=== PATIENT | male | born 1960 | race Asian ===

== ENCOUNTER 2017-12-07 18:05 | Inpatient (IN) | payer BC ==
[~2017-12-07] VITALS: Ht 165.1 cm; Wt 73.9 kg
[~2017-12-07 18:05] MED LIST: ASPI81 PO; BENA20TA3 PO; CITA20TA9 PO; DISU250 PO; FISH1CAP27 PO; GLIP10TA9 PO; INSLAN SQ; OMEP20 PO; SIMV-260 PO; VITAD1000 PO
[2017-12-07] MEDS ORDERED: LORazepam 2 MG TABLET PO ONE (21:45)
[2017-12-07 22:00] LABS: ANION GAP 8 mmol/L (8-16); CALCIUM, TOTAL 8.1 mg/dL (8.8-10.5); CARBON DIOXIDE 30 mmol/L (22-29); CHLORIDE 100 mmol/L (98-107); CREATININE 1.03 mg/dL (0.60-1.30); GLOMERULAR FILTR. RATE CALC > 60 mL/min (>60); GLUCOSE,RANDOM 327 mg/dL (70-110); POTASSIUM 3.9 mmol/L (3.5-5.1); SODIUM SERUM 138 mmol/L (136-145); UREA NITROGEN, BLOOD 13 mg/dL (7-18)
[2017-12-07] MEDS ORDERED: MAG HYDROX/AL HYDROX/SIMETH ES 30 ML SUSPENSION UDCUP PO PRN (22:00)
[2017-12-07] MEDS ORDERED: GuaiFENesin/D-METHORPHAN [SUGAR-FREE] 200-20MG/10 ML SYRUP UDCUP PO PRN (22:00)
[2017-12-07] MEDS ORDERED: MAGNESIUM HYDROXIDE SUSPENSION 30 ML UDCUP PO PRN (22:00)
[2017-12-07] MEDS ORDERED: LORazepam 2 MG TABLET PO PRN ×2 (22:00)
[2017-12-07] MEDS ORDERED: CYANOCOBALAMIN 1,000 MCG/ML VIAL IM ONE (22:00)
[2017-12-07] MEDS ORDERED: HydrOXYzine PAMOATE 50 MG CAPSULE PO PRN (22:00)
[2017-12-07] MEDS ORDERED: LOPERAMIDE HCL 2 MG CAPSULE PO PRN ×2 (22:00)
[2017-12-07] MEDS ORDERED: HALOPERIDOL 5 MG TABLET PO PRN (22:00)
[2017-12-07] MEDS ORDERED: PROMETHAZINE HCL 25 MG TABLET PO PRN (22:00)
[2017-12-07] MEDS ORDERED: ZOLPIDEM TARTRATE 10 MG TABLET PO PRN (22:00)
[2017-12-07 22:03] LABS: BASOPHILS % (AUTO) 0.5 % (0.0-2.0); EOSINOPHILS % (AUTO) 1.8 % (1.0-6.0); HEMATOCRIT 46.9 % (41-53); HEMOGLOBIN 16.4 g/dL (13.5-17.5); LYMPHOCYTES # (AUTO) 1.7 K/uL (1.0-4.8); LYMPHOCYTES % (AUTO) 30.1 % (22.0-44.0); MEAN CORPUSCULAR HEMOGLOBIN 31.6 pg (26.0-34.0); MEAN CORPUSCULAR HGB CONC 34.9 G/dL (31.0-37.0); MEAN CORPUSCULAR VOLUME 90 fL (80-100); MONOCYTES # (AUTO) 0.6 K/uL (0.1-1.0); NEUTROPHILS # (AUTO) 3.2 K/uL (1.8-7.7); NEUTROPHILS % (AUTO) 57.6 % (40.0-70.0); PLATELET COUNT (AUTO) 163 K/uL (150-450); RED BLOOD CELL COUNT(AUTO) 5.19 MIL/uL (4.50-5.90); RED CELL DISTRIBUTION WIDTH 13.7 % (11.5-14.5)
[2017-12-07 22:08] LABS: ALANINE AMINOTRANSFERASE 45 U/L (12-78); ALBUMIN 3.5 g/dL (3.4-5.0); ALKALINE PHOSPHATASE 55 U/L (46-116); ASPARTATE AMINOTRANSFERASE 44 U/L (15-37); BILIRUBIN,TOTAL 0.4 mg/dL (0.1-1.0); TOTAL PROTEIN, SERUM 7.1 g/dL (6.4-8.2)
[2017-12-07] MEDS ORDERED: INSULIN REGULAR, HUMAN 100 UNITS/ML SQ ONE (22:30)
[2017-12-07 22:58] LABS: GLUCOSE,POINT OF CARE 248 MG/DL (70-110)
[2017-12-08] VITALS (12 sets, daily range): BP systolic 108–143; BP diastolic 63–87
[2017-12-08 05:58] LABS: GLUCOMETER DEV NAME(LOC) 3EI B; GLUCOSE,POINT OF CARE 117 MG/DL (70-110)
[2017-12-08] MEDS ORDERED: LORazepam 2 MG TABLET PO PRN (07:00)
[2017-12-08 08:08] LABS: CHOL/HDL RATIO 2.7 (4.2-7.3)
[2017-12-08] MEDS: THIAMINE HCL 100 MG TABLET PO SCH ×2 (08:33→16:49)
[2017-12-08] MEDS: FOLIC ACID 1 MG TABLET PO SCH (08:33)
[2017-12-08] MEDS: MULTIVITAMINS WITH MINERALS, THERAPEUTIC TABLET PO SCH (08:33)
[2017-12-08] MEDS: LORazepam 2 MG TABLET PO SCH ×4 (08:39→20:53)
[2017-12-08] MEDS ORDERED: DEXTROSE 50%-WATER 25 GM/50 ML SYRINGE IVP PRN (11:00)
[2017-12-08] MEDS: INSULIN ASPART 100 UNITS/ML SQ PRN ×3 (11:34→21:13)
[2017-12-08] MEDS: SIMVASTATIN 20 MG TABLET PO SCH (20:53)
[2017-12-08] MEDS ORDERED: MIRTAZAPINE 15 MG TABLET PO SCH (21:00)
[2017-12-08] MEDS: INSULIN GLARGINE,HUM.REC.ANLOG 100 UNITS/ML SQ SCH (21:12)
[2017-12-09] VITALS (7 sets, daily range): BP systolic 116–144; BP diastolic 71–76
[2017-12-09 06:19] LABS: GLUCOMETER DEV NAME(LOC) 3EI B; GLUCOSE,POINT OF CARE 118 MG/DL (70-110)
[2017-12-09] MEDS: GlipiZIDE 10 MG TABLET PO SCH (07:08)
[2017-12-09] MEDS: CHOLECALCIFEROL (VIT D3) 1,000 UNITS TABLET PO SCH (09:17)
[2017-12-09] MEDS: THIAMINE HCL 100 MG TABLET PO SCH ×2 (09:17→16:52)
[2017-12-09] MEDS: ASPIRIN 81 MG CHEWABLE TABLET PO SCH (09:17)
[2017-12-09] MEDS: OMEGA-3/DHA/EPA/FISH OIL 1,000 MG CAPSULE PO SCH (09:18)
[2017-12-09] MEDS: BENAZEPRIL HCL 20 MG TABLET PO SCH (09:18)
[2017-12-09] MEDS: FOLIC ACID 1 MG TABLET PO SCH (09:18)
[2017-12-09] MEDS: MULTIVITAMINS WITH MINERALS, THERAPEUTIC TABLET PO SCH (09:19)
[2017-12-09] MEDS: OMEPRAZOLE 20 MG CAPSULE PO SCH (09:20)
[2017-12-09] MEDS: LORazepam 2 MG TABLET PO SCH ×4 (09:20→21:00)
[2017-12-09] MEDS: INSULIN ASPART 100 UNITS/ML SQ PRN ×2 (11:30→20:39)
[2017-12-09] MEDS: MIRTAZAPINE 30 MG TABLET PO SCH (20:29)
[2017-12-09] MEDS: SIMVASTATIN 20 MG TABLET PO SCH (21:00)
[2017-12-09] MEDS: INSULIN GLARGINE,HUM.REC.ANLOG 100 UNITS/ML SQ SCH (22:52)
[2017-12-10 05:33] LABS: GLUCOMETER DEV NAME(LOC) 3EI B; GLUCOSE,POINT OF CARE 139 MG/DL (70-110)
[2017-12-10] MEDS: GlipiZIDE 10 MG TABLET PO SCH (06:48)
[2017-12-10 06:52] VITALS: BP 134/75
[2017-12-10 06:53] VITALS: BP 134/75
[2017-12-10] MEDS ORDERED: LORazepam 1 MG TABLET PO PRN (07:00)
[2017-12-10 08:30] VITALS: BP 134/80
[2017-12-10] MEDS: OMEGA-3/DHA/EPA/FISH OIL 1,000 MG CAPSULE PO SCH (08:43)
[2017-12-10] MEDS: LORazepam 1 MG TABLET PO SCH ×4 (08:43→20:14)
[2017-12-10] MEDS: MULTIVITAMINS WITH MINERALS, THERAPEUTIC TABLET PO SCH (08:44)
[2017-12-10] MEDS: THIAMINE HCL 100 MG TABLET PO SCH ×2 (08:44→16:34)
[2017-12-10] MEDS: OMEPRAZOLE 20 MG CAPSULE PO SCH (08:44)
[2017-12-10] MEDS: ASPIRIN 81 MG CHEWABLE TABLET PO SCH (08:44)
[2017-12-10] MEDS: CHOLECALCIFEROL (VIT D3) 1,000 UNITS TABLET PO SCH (08:44)
[2017-12-10] MEDS: BENAZEPRIL HCL 20 MG TABLET PO SCH (08:45)
[2017-12-10] MEDS: FOLIC ACID 1 MG TABLET PO SCH (08:46)
[2017-12-10 09:38] VITALS: BP 134/80
[2017-12-10] MEDS: INSULIN ASPART 100 UNITS/ML SQ PRN ×2 (11:53→20:27)
[2017-12-10 16:25] VITALS: BP 131/73
[2017-12-10 17:20] VITALS: BP 131/80
[2017-12-10] MEDS: MIRTAZAPINE 30 MG TABLET PO SCH (20:14)
[2017-12-10] MEDS: SIMVASTATIN 20 MG TABLET PO SCH (20:14)
[2017-12-10] MEDS: INSULIN GLARGINE,HUM.REC.ANLOG 100 UNITS/ML SQ SCH (20:24)
[2017-12-11 06:12] VITALS: BP 117/76
[2017-12-11 06:33] LABS: GLUCOMETER DEV NAME(LOC) 3EI B; GLUCOSE,POINT OF CARE 239 MG/DL (70-110)
[2017-12-11] MEDS: GlipiZIDE 10 MG TABLET PO SCH (06:40)
[2017-12-11] MEDS: INSULIN ASPART 100 UNITS/ML SQ PRN ×2 (06:41→11:34)
[2017-12-11] MEDS ORDERED: LORazepam 1 MG TABLET PO PRN (07:00)
[2017-12-11 07:16] LABS: HEMOGLOBIN 15.5 g/dL (13.5-17.5); MEAN CORPUSCULAR HEMOGLOBIN 31.6 pg (26.0-34.0); MEAN CORPUSCULAR HGB CONC 35.2 G/dL (31.0-37.0); MEAN CORPUSCULAR VOLUME 90 fL (80-100); PLATELET COUNT (AUTO) 122 K/uL (150-450); RED CELL DISTRIBUTION WIDTH 13.7 % (11.5-14.5)
[2017-12-11 07:39] LABS: HEMOGLOBIN A1C 9.3 % (4.5-6.2)
[2017-12-11 07:51] LABS: ANION GAP 7 mmol/L (8-16); CALCIUM, TOTAL 9.4 mg/dL (8.8-10.5); CARBON DIOXIDE 29 mmol/L (22-29); CHLORIDE 95 mmol/L (98-107); CHOLESTEROL 168 mg/dL (131-200); CREATININE 0.89 mg/dL (0.60-1.30); GLOMERULAR FILTR. RATE CALC > 60 mL/min (>60); GLUCOSE,RANDOM 208 mg/dL (70-110); HDL CHOLESTEROL 56 mg/dL (40-60); LDL CHOL (CALC.) 60 mg/dL (0-130); PHOSPHORUS 4.5 mg/dL (2.5-4.9); POTASSIUM 4.1 mmol/L (3.5-5.1); SODIUM SERUM 131 mmol/L (136-145); THYROID STIMULATING HORMONE 2.04 uIU/mL (0.36-3.74); TRIGLYCERIDES 258 mg/dL (15-150); UREA NITROGEN, BLOOD 17 mg/dL (7-18)
[2017-12-11 08:15] VITALS: BP 144/79
[2017-12-11] MEDS: CHOLECALCIFEROL (VIT D3) 1,000 UNITS TABLET PO SCH (09:13)
[2017-12-11] MEDS: ASPIRIN 81 MG CHEWABLE TABLET PO SCH (09:13)
[2017-12-11] MEDS: OMEPRAZOLE 20 MG CAPSULE PO SCH (09:13)
[2017-12-11] MEDS: FOLIC ACID 1 MG TABLET PO SCH (09:13)
[2017-12-11] MEDS: OMEGA-3/DHA/EPA/FISH OIL 1,000 MG CAPSULE PO SCH (09:13)
[2017-12-11] MEDS: THIAMINE HCL 100 MG TABLET PO SCH (09:13)
[2017-12-11] MEDS: MULTIVITAMINS WITH MINERALS, THERAPEUTIC TABLET PO SCH (09:13)
[2017-12-11] MEDS: BENAZEPRIL HCL 20 MG TABLET PO SCH (09:14)
[2017-12-11] MEDS ORDERED: MIRT30 PO (10:56)
[2017-12-11 11:06] LABS: EOSINOPHILS % (MANUAL) 3 % (1-6); LYMPHOCYTES % (MANUAL) 34 % (22-44); MONOCYTES % (MANUAL) 9 % (2-9); SEGMENTED NEUTROPHILS % 54 % (40-70)
[2017-12-14 15:08] LABS: GLUCOMETER DEV NAME(LOC) 3EX 1; GLUCOSE,POINT OF CARE 304 MG/DL (70-110)
[2017-12-14 15:08] LABS: GLUCOMETER DEV NAME(LOC) 3EX 1; GLUCOSE,POINT OF CARE 162 MG/DL (70-110)
[2017-12-14 15:08] LABS: GLUCOMETER DEV NAME(LOC) 3EX 1; GLUCOSE,POINT OF CARE 180 MG/DL (70-110)
[2017-12-14 15:08] LABS: GLUCOMETER DEV NAME(LOC) 3EX 1; GLUCOSE,POINT OF CARE 219 MG/DL (70-110)
[2017-12-14 15:08] LABS: GLUCOMETER DEV NAME(LOC) 3EX 1; GLUCOSE,POINT OF CARE 221 MG/DL (70-110)
[2017-12-14 15:08] LABS: GLUCOMETER DEV NAME(LOC) 3EX 1; GLUCOSE,POINT OF CARE 236 MG/DL (70-110)
[2017-12-14 15:08] LABS: GLUCOMETER DEV NAME(LOC) 3EX 1; GLUCOSE,POINT OF CARE 166 MG/DL (70-110)
[2017-12-14 15:08] LABS: GLUCOMETER DEV NAME(LOC) 3EX 1; GLUCOSE,POINT OF CARE 208 MG/DL (70-110)
[2017-12-14 15:09] LABS: GLUCOMETER DEV NAME(LOC) 3EX 1; GLUCOSE,POINT OF CARE 221 MG/DL (70-110)
[2017-12-14 15:09] LABS: GLUCOMETER DEV NAME(LOC) 3EX 1; GLUCOSE,POINT OF CARE 219 MG/DL (70-110)
== END 2017-12-11 14:50 | disposition home or self-care (01) | DRG 885 ==
LOC: EMS 18:08 → 3EX 21:30
PROVIDERS: ADMIT Psychiatry & Neurology Psychiatry; ATTEND Psychiatry & Neurology Psychiatry
DX: F33.2 Major depressive disorder, recurrent severe without psychotic features (principal); E11.65 Type 2 diabetes mellitus with hyperglycemia; K70.30 Alcoholic cirrhosis of liver without ascites; R45.851 Suicidal ideations; F10.239 Alcohol dependence with withdrawal, unspecified; E78.5 Hyperlipidemia, unspecified; F10.229 Alcohol dependence with intoxication, unspecified; F17.200 Nicotine dependence, unspecified, uncomplicated; G47.00 Insomnia, unspecified; I10 Essential (primary) hypertension; J44.9 Chronic obstructive pulmonary disease, unspecified; E78.00 Pure hypercholesterolemia, unspecified; F41.9 Anxiety disorder, unspecified; K21.9 Gastro-esophageal reflux disease without esophagitis; Z79.84 Long term (current) use of oral hypoglycemic drugs; Z71.6 Tobacco abuse counseling; Z79.899 Other long term (current) drug therapy; Z79.82 Long term (current) use of aspirin
CPT/HCPCS: 70450; 82306; 82962; 83036; 83735; 84100; 84443; 85007; 96372; 99285; G0480; J1815; J3420

== ENCOUNTER 2018-12-05 18:05 | Emergency (ER) | payer BC ==
[~2018-12-05] VITALS: Ht 162.6 cm; Wt 81.8 kg
[~2018-12-05 18:05] MED LIST changes: +BENA20TA10 PO; -BENA20TA3 PO; -CITA20TA9 PO; -DISU250 PO; +MIRT30 PO
[2018-12-05 20:07] LABS: BASOPHILS % (AUTO) 0.7 % (0.0-2.0); EOSINOPHILS % (AUTO) 5.9 % (1.0-6.0); HEMATOCRIT 51.9 % (41-53); HEMOGLOBIN 18.2 g/dL (13.5-17.5); LYMPHOCYTES # (AUTO) 2.8 K/uL (1.0-4.8); LYMPHOCYTES % (AUTO) 60.5 % (22.0-44.0); MEAN CORPUSCULAR HEMOGLOBIN 33.1 pg (26.0-34.0); MEAN CORPUSCULAR HGB CONC 35.1 G/dL (31.0-37.0); MEAN CORPUSCULAR VOLUME 94 fL (80-100); MONOCYTES # (AUTO) 0.3 K/uL (0.1-1.0); MONOCYTES % (AUTO) 6.9 % (2.0-9.0); NEUTROPHILS # (AUTO) 1.2 K/uL (1.8-7.7); PLATELET COUNT (AUTO) 132 K/uL (150-450); RED CELL DISTRIBUTION WIDTH 13.2 % (11.5-14.5)
[2018-12-05 20:12] LABS: ANION GAP 12 mmol/L (8-16); CALCIUM, TOTAL 8.9 mg/dL (8.8-10.5); CARBON DIOXIDE 27 mmol/L (22-29); CHLORIDE 98 mmol/L (98-107); CREATININE 0.72 mg/dL (0.60-1.30); GLOMERULAR FILTR. RATE CALC > 60 mL/min (>60); GLUCOSE,RANDOM 250 mg/dL (70-110); POTASSIUM 4.2 mmol/L (3.5-5.1); SODIUM SERUM 137 mmol/L (136-145); UREA NITROGEN, BLOOD 9 mg/dL (7-18)
[2018-12-05 20:22] LABS: ALANINE AMINOTRANSFERASE 134 U/L (12-78); ALBUMIN 3.9 g/dL (3.4-5.0); ALKALINE PHOSPHATASE 48 U/L (46-116); ASPARTATE AMINOTRANSFERASE 162 U/L (15-37); BILIRUBIN,TOTAL 0.4 mg/dL (0.1-1.0); TOTAL PROTEIN, SERUM 7.7 g/dL (6.4-8.2)
[2018-12-06 00:32] LABS: AMPHET/METH SCREEN,URINE NEGATIVE (NEGATIVE); BARBITURATE SCREEN, URINE NEGATIVE (NEGATIVE); BENZODIAZEPINES SCREEN,URINE NEGATIVE (NEGATIVE); CANNABINOID SCREEN,URINE NEGATIVE (NEGATIVE); COCAINE SCREEN,URINE NEGATIVE (NEGATIVE); METHADONE SCREEN, URINE NEGATIVE (NEGATIVE); OPIATE SCREEN,URINE NEGATIVE (NEGATIVE)
[2018-12-06 00:46] LABS: PHENCYCLIDINE SCREEN,URINE NEGATIVE (NEGATIVE)
[2018-12-06 03:18] VITALS: BP 132/75
== END 2018-12-06 04:23 | disposition home or self-care (01) ==
LOC: EMS 18:07
DX: F10.229 Alcohol dependence with intoxication, unspecified (principal); I10 Essential (primary) hypertension; E11.9 Type 2 diabetes mellitus without complications; F17.210 Nicotine dependence, cigarettes, uncomplicated; Z79.4 Long term (current) use of insulin; Z79.899 Other long term (current) drug therapy; Y90.8 Blood alcohol level of 240 mg/100 ml or more
CPT/HCPCS: 36415; 80053; 80307; 85025; 99283; G0480

== ENCOUNTER 2021-01-25 09:07 | Emergency (ER) | payer BC ==
[~2021-01-25] VITALS: Ht 170.2 cm; Wt 81.8 kg
[~2021-01-25 09:07] MED LIST changes: +ASPI-1450 PO; -ASPI81 PO; +CHOL100018 PO; -VITAD1000 PO
[2021-01-25] MEDS ORDERED: CITA10TA99 PO (11:19)
[2021-01-25] MEDS ORDERED: LIB25 PO (11:19)
[2021-01-25] MEDS ORDERED: GABA-1181 PO (11:19)
[2021-01-25 11:31] LABS: BASOPHILS % (AUTO) 0.7 % (0.0-2.0); EOSINOPHILS % (AUTO) 1.5 % (1.0-6.0); HEMATOCRIT 42.2 % (41-53); HEMOGLOBIN 14.3 g/dL (13.5-17.5); LYMPHOCYTES # (AUTO) 1.7 K/uL (1.0-4.8); LYMPHOCYTES % (AUTO) 32.7 % (22.0-44.0); MEAN CORPUSCULAR HEMOGLOBIN 33.1 pg (26.0-34.0); MEAN CORPUSCULAR HGB CONC 33.9 G/dL (31.0-37.0); MEAN CORPUSCULAR VOLUME 98 fL (80-100); MONOCYTES # (AUTO) 0.5 K/uL (0.1-1.0); NEUTROPHILS % (AUTO) 56.1 % (40.0-70.0); PLATELET COUNT (AUTO) 160 K/uL (150-450); RED BLOOD CELL COUNT(AUTO) 4.32 MIL/uL (4.50-5.90); RED CELL DISTRIBUTION WIDTH 14.7 % (11.5-14.5)
[2021-01-25 11:55] LABS: ANION GAP 13 mmol/L (8-16); CALCIUM, TOTAL 9.2 mg/dL (8.8-10.5); CARBON DIOXIDE 26 mmol/L (22-29); CHLORIDE 100 mmol/L (98-107); CREATININE 0.63 mg/dL (0.60-1.30); GLOMERULAR FILTR. RATE CALC > 60 mL/min (>60); GLUCOSE,RANDOM 206 mg/dL (70-110); POTASSIUM 3.9 mmol/L (3.5-5.1); SODIUM SERUM 139 mmol/L (136-145); UREA NITROGEN, BLOOD 9 mg/dL (7-18)
[2021-01-25 11:59] LABS: ALANINE AMINOTRANSFERASE 47 U/L (12-78); ALBUMIN 3.8 g/dL (3.4-5.0); ALKALINE PHOSPHATASE 39 U/L (46-116); ASPARTATE AMINOTRANSFERASE 26 U/L (15-37); BILIRUBIN,TOTAL 0.3 mg/dL (0.1-1.0)
[2021-01-25 12:47] LABS: APPEARANCE,URINE CLEAR (CLEAR); BILIRUBIN,URINE NEGATIVE (NEGATIVE); GLUCOSE, URINE (UA) >=1000 mg/dL (NEGATIVE); KETONES,URINE TRACE mg/dL (NEGATIVE); LEUKOCYTE ESTERASE ,URINE NEGATIVE (NEGATIVE); NITRATE,URINE NEGATIVE (NEGATIVE); OCCULT BLOOD,URINE NEGATIVE (NEGATIVE); PROTEIN,URINE NEGATIVE (NEGATIVE); UROBILINOGEN,URINE 0.2 mg/dL (<=1.0)
[2021-01-25 12:53] LABS: AMPHET/METH SCREEN,URINE NEGATIVE (NEGATIVE); BARBITURATE SCREEN, URINE NEGATIVE (NEGATIVE); BENZODIAZEPINES SCREEN,URINE POSITIVE (NEGATIVE); CANNABINOID SCREEN,URINE NEGATIVE (NEGATIVE); COCAINE SCREEN,URINE NEGATIVE (NEGATIVE); METHADONE SCREEN, URINE NEGATIVE (NEGATIVE); OPIATE SCREEN,URINE NEGATIVE (NEGATIVE)
[2021-01-25 12:59] LABS: PHENCYCLIDINE SCREEN,URINE NEGATIVE (NEGATIVE)
[2021-01-25 13:09] LABS: BACTERIA,URINE None Seen /HPF (None Seen); RBC,URINE 0-2 /HPF (0-2); WBC,URINE 0-2 /HPF (0-5)
[2021-01-25] MEDS ORDERED: MAGNESIUM SULFATE 2 GM, MVI, ADULT NO.1 WITH VIT K 10 ML, THIAMINE 100 MG, FOLIC ACID 1... IV ONE ×5 (14:00)
[2021-01-25] MEDS ORDERED: SODIUM CHLORIDE 0.9% 1,000 ML IV ONE (14:00)
[2021-01-25] MEDS ORDERED: ATOR40TA71 PO (14:07)
[2021-01-25] MEDS ORDERED: ASPI-1444 PO (14:07)
[2021-01-25 14:23] LABS: COVID AG,FIA SOURCE NASOPHARYNGEAL
[2021-01-25 16:50] VITALS: BP 118/80
== END 2021-01-25 17:04 | disposition home or self-care (01) ==
LOC: EMS 09:18
DX: R45.851 Suicidal ideations (principal); F32.9 Major depressive disorder, single episode, unspecified; E11.65 Type 2 diabetes mellitus with hyperglycemia; L02.413 Cutaneous abscess of right upper limb; F10.239 Alcohol dependence with withdrawal, unspecified; F17.210 Nicotine dependence, cigarettes, uncomplicated; Z79.899 Other long term (current) drug therapy; Z20.822 Contact with and (suspected) exposure to COVID-19
CPT/HCPCS: 10060; 36415; 80053; 80307; 81001; 85025; 87070; 87426; 96361; 96365; 99285; G0480; J3411; J3475; J3490 ×2; J7030; 87205